=== PATIENT | female | born 1970 | race African-American/Black ===

== ENCOUNTER 2019-02-06 17:22 | Emergency (ER) | payer OTHER ==
[~2019-02-06] VITALS: Ht 160 cm; Wt 95.3 kg
[2019-02-06] MEDS ORDERED: LOSARTAN-HCTZ1 EAC3 PO (17:49)
[2019-02-06] MEDS ORDERED: ASA81BEC PO (17:49)
[2019-02-06] MEDS ORDERED: METHOTREXATE 22.5 M1 PO (17:50)
[2019-02-06] MEDS ORDERED: FOLIC ACID1 MG PO (17:50)
[2019-02-06] MEDS ORDERED: PLAQUENIL200 MG PO (17:51)
[2019-02-06] MEDS ORDERED: SULFASALAZINE (17:52)
[2019-02-06 19:44] VITALS: BP 145/78
== END 2019-02-06 19:44 | disposition home or self-care (01) ==
LOC: M.ERS 17:22
DX: S61.211A Laceration without foreign body of left index finger without damage to nail, initial encounter (principal); M19.90 Unspecified osteoarthritis, unspecified site; I10 Essential (primary) hypertension; W26.0XXA Contact with knife, initial encounter; Y93.89 Activity, other specified; Y92.89 Other specified places as the place of occurrence of the external cause; Y99.8 Other external cause status

== ENCOUNTER → 2020-11-24 | Outpatient (CLI) | payer OTHER ==
[~2020-11-24] MED LIST: ASA81BEC PO; FOLIC ACID1 MG PO; LOSARTAN-HCTZ1 EAC3 PO; METHOTREXATE 22.5 M1 PO; PLAQUENIL200 MG PO; SULFASALAZINE
== END ==
LOC: M.LAB 15:36
PROVIDERS: ATTEND Anesthesiology
DX: Z01.812 Encounter for preprocedural laboratory examination (principal); Z20.822 Contact with and (suspected) exposure to COVID-19; E87.6 Hypokalemia